=== PATIENT | male | born 1970 | race Caucasian/White ===

== ENCOUNTER 2021-10-18 12:41 | Emergency (ER) | payer OTHER ==
[2021-10-18 12:49] VITALS: BP 118/73; PULSE 94; TEMP 97.8; BMI 24.5
[2021-10-18] MEDS ORDERED: LIDOCAINE VISCOUS 2% ORAL/TOP 15 ML UNIT-DOSE CUP MM ONE (13:19)
[2021-10-18] MEDS ORDERED: DEXAMETHASONE LIQUID 0.5 MG/5 ML PO ONE (13:19)
[2021-10-18] MEDS ORDERED: IBUPROFEN 600 MG TABLET (FP) PO ONE ×2 (13:19→13:37)
[2021-10-18] MEDS ORDERED: DEXAMETHASONE SOD PHOSPHATE 10 MG/1 ML VIAL ONE (13:37)
[2021-10-18] MEDS ORDERED: LIDOCAINE VISCOUS 2% ORAL/TOP 15 ML UNIT-DOSE CUP ONE (13:38)
== END 2021-10-18 13:45 | disposition home or self-care (01) ==
LOC: JER 12:41
DX: U07.1 COVID-19 (principal)
CPT/HCPCS: 99283-25